=== PATIENT | male | born 1995 | race Caucasian/White ===

== ENCOUNTER 2017-06-12 09:49 | Emergency (ER) | payer SELFPAY ==
[~2017-06-12] VITALS: Ht 188 cm; Wt 145.1 kg
[2017-06-12] MEDS ORDERED: IPRATRPIUM/ALBUTEROL 0.5/2.5MG 3 ML NEBU. NEB ONE (11:00)
[2017-06-12] MEDS ORDERED: methylPREDNISolone SOD SUCC PF 125 MG/2 ML VIAL. IV ONE (11:00)
[2017-06-12] MEDS ORDERED: guaiFENesin/CODEINE 100mg/10mg 5 ML LIQUID PO ONE (11:00)
[2017-06-12] MEDS ORDERED: PRED20TA PO (11:55)
[2017-06-12] MEDS ORDERED: AZIT250T PO (11:55)
[2017-06-12] MEDS ORDERED: GUAI118L13 PO (11:55)
[2017-06-12] MEDS ORDERED: ALBU8.5H8 INH (11:55)
--- NOTE | 2017-06-12 12:02 | PHYS DOC ---
General Chief Complaint: COUGH Stated Complaint: COUGH Time Seen by MD: 09:51 Source: patient Exam Limitations: no limitations Problems: History of Present Illness Initial Comments Patient is a 22-year-old male who comes to the ED complaining of cough. 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 He says he' s had a history of seasonal allergies in the past however his allergy symptoms worsened with moving here to [place]. He says he has been coughing for the past week with nasal drainage (clear) cough is described as a dry cough. He's had no fever chills or body aches and has been using [id number]-[id number] medication without any relief. He's had a steady increase in wheezing dyspnea with exertion and today states he can only speak in short sentences due to shortness of breath. He has no focal chest pain complaints and is otherwise healthy. He is a smoker but states he's cut down to 1-2 daily since he's been ill. On arrival his oxygen saturation is 91-93% on room air. He is afebrile and not tachycardic. He asks that we try to keep costs down as he is self pay. We discussed chest x-ray and blood work which could be indicated in his case but he would like to defer those testing for now. Timing/Duration: 1 week, getting worse Severity: moderate Modifying Factors: worse with movement, improves with rest Associated Symptoms: cough, shortness of breath Allergies: Coded Allergies: Penicillins (Verified Allergy, Unknown, 06/12/17) Past Medical History Medical History: other (allergies) Surgical History: noncontributory Social History Smoker: cigarettes, less than 1 pack/day Alcohol: none Drugs: none Review of Systems Constitutional: denies chills, denies diaphoresis, denies fever Respiratory: see HPI, denies cough, denies orthopnea, shortness of breath, denies stridor, wheezing Cardiovascular: denies chest pain, denies palpitations, denies syncope Gastrointestinal: denies abdominal pain, denies nausea, denies vomiting Musculoskeletal: denies back pain, denies joint swelling, denies neck pain Psychiatric/Neurological: denies headache, denies numbness, denies paresthesia Immunological/Allergic: see HPI Physical Exam General Appearance: no apparent distress, obese Eyes: bilateral eye PERRL, bilateral eye EOMI, bilateral eye other ( conjunctiva red bilaterally) Ear, Nose, Throat: hearing grossly normal, other (clear nasal discharge and postnasal drip, turbinates inflamed airway is patent) Neck: full range of motion, supple Respiratory: other (decreased breath sounds bilaterally with wheezes, conversational dyspnea no respiratory distress) Cardiovascular: normal peripheral pulses, regular rate, rhythm Extremities: non-tender, normal inspection (no clubbing or cyanosis) Neurologic/Psychiatric: dials inspector II-XII nml as tested, no motor/sensory deficits, alert, normal mood/affect, oriented x 3 Skin: normal color, warm/dry Orders, Labs, Meds 1214: Patient received Solu-Medrol 125 mg IV, DuoNeb, and guaifenesin with codeine syrup. I rechecked him his breath sounds have improved dramatically and he can now speak in full sentences. He overall feels much better than he did but states he's a little dizzy from the codeine. He has a ride home his questions are answered and he expressed agreement and understanding with the treatment plan. He is advised to stop smoking. Departure Time of Disposition: 11:58 Disposition: 01 HOME, SELF-CARE Diagnosis: asthma exacerbation Condition: IMPROVED Patient Instructions: Asthma, Adult, [id number], Smoking Cessation, Tips For Success Additional Instructions: Off work two days, note given. OTC zyrtec in am, benadryl for pm symptoms. Stop smoking, it's not for you. Seek medical assistance if necessary. Avoid smoke, temperature extremes, and environmental allergens as able. Rx: prednisone, albuterol MDI, z-rama, guaifenesin w/codeine syrup You will need to follow up with a primary care physician. As discussed, ED staff will provide you information regarding the [facility]. [place] with them today to explore what assistance they may provide to you. Return to ED with new or changing symptoms. LENA NG DO Jun 12, 2017 12:02
[2017-06-12 12:03] VITALS: BP 134/81
== END 2017-06-12 12:14 | disposition home or self-care (01) ==
LOC: ER 09:49
DX: J45.901 Unspecified asthma with (acute) exacerbation (principal); F17.210 Nicotine dependence, cigarettes, uncomplicated; Z88.0 Allergy status to penicillin
CPT/HCPCS: 94640; 96374; 99284; J2930; J7620

== ENCOUNTER 2018-11-17 10:07 | Inpatient (IN) | payer SELFPAY ==
[~2018-11-17] VITALS: Ht 188 cm; Wt 102.5 kg
[~2018-11-17 10:07] MED LIST: ALBU2.5V8 INH; AZIT250T PO; GUAI118L13 PO; PRED20TA PO
[2018-11-17] MEDS ORDERED: IV NORMAL SALINE 1,000ML 1,000 ML IV SCH (10:29)
[2018-11-17] MEDS ORDERED: IPRATRPIUM/ALBUTEROL 0.5/2.5MG 3 ML NEBU. NEB ONE (10:30)
[2018-11-17] MEDS ORDERED: methylPREDNISolone SOD SUCC PF 125 MG/2 ML VIAL. IV ONE (10:30)
--- NOTE | 2018-11-17 10:44 | PHYS DOC ---
Past History Past Medical History: No Pertinent History Past Surgical History: No Surgical History Alcohol Use: None Drug Use: None Adult General Chief Complaint Chief Complaint: SHORTNESS OF BREATH [facility] HPI Patient is a 23 year old male who presents with complaining of shortness of breath. Patient states he woke up yesterday morning with shortness of breath as a constant problem with productive cough and green sputum. Patient complaining of subjective fever, sore throat, nasal congestion and earache, myalgia and decrease of activity. Patient did not take any medication. Patient denies nausea and vomiting, diarrhea, urinary symptom, history asthma, smoking cigarettes or using illegal drugs, or sick contact. Patient states he had one episode of the same problem couple years ago that was treated in this emergency room as outpatient. Patient had O2 sat of 88% at arrival to ER. Review of Systems Review of Systems Constitutional: Reports fever and chills Eyes: Denies change in visual acuity, redness, or eye pain [] HENT: Reports nasal congestion and sore throat Respiratory: Reports cough and shortness of breath Cardiovascular: No additional information not addressed in HPI [] GI: Denies abdominal pain, nausea, vomiting, bloody stools or diarrhea [] : Denies dysuria or hematuria [] Musculoskeletal: Denies back pain or joint pain [] Integument: Denies rash or skin lesions [] Neurologic: Denies headache, focal weakness or sensory changes [] Endocrine: Denies polyuria or polydipsia [] All other systems were reviewed and found to be within normal limits, except as documented in this note. Current Medications Current Medications Current Medications Medications (Trade) Dose Ordered Sig/[facility] Start Time Stop Time Status Last Admin Dose Admin Albuterol/ Ipratropium (Duoneb) 3 ml 1X ONCE 11/17/18 10:30 11/17/18 10:31 UNV Methylprednisolone Sodium Succinate (SOLU-Medrol 125MG VIAL) 125 mg 1X ONCE 11/17/18 10:30 11/17/18 10:31 UNV Sodium Chloride 1,000 ml @ 1,000 mls/hr Q1H 11/17/18 10:29 11/17/18 11:28 UNV Allergies Allergies Allergies Coded Allergies Type Severity Reaction Last Updated Verified Penicillins Allergy Unknown 06/12/17 Yes Physical Exam Physical Exam Constitutional: Well developed, well nourished, moderate distress, non-toxic appearance, temperature of 101.6. [] HENT: Normocephalic, atraumatic, bilateral external ears normal, oropharynx dry , no oral exudates, nose normal. [] Eyes: PERRLA, EOMI, conjunctiva normal, no discharge. [] Neck: Normal range of motion, no tenderness, supple, no stridor. [] Cardiovascular: Tachycardia, no murmur [] Lungs & Thorax: Mild respiratory distress, intercostal retraction and hyperventilation, decrease of air movement bilaterally. Abdomen: Bowel sounds normal, soft, no tenderness, no masses, no pulsatile masses. [] Skin: Warm, dry, no erythema, no rash. [] Back: No tenderness, no CVA tenderness. [] Extremities: No tenderness, no cyanosis, no clubbing, ROM intact, no edema. [] Neurologic: Alert and oriented X 3, normal motor function, normal sensory function, no focal deficits noted. [] Psychologic: Affect normal, judgement normal, mood normal. [] EKG EKG EKG interpreted by me. EKG at 1031 showed sinus tachycardia at rate of 145, right schuster axis, no acute ST and T-wave abnormalities. Radiology/Procedures Radiology/[place] [address] IMAGING REPORT Signed PATIENT: GRACIELA HORVATH ACCOUNT: [id number] : 1995 LOCATION: ER AGE: 23 SEX: M EXAM STATUS: PRE ER ORD. PHYSICIAN: SLIME TROY MD REASON: shortness of breath PROCEDURE: CHEST PA & LATERAL CHEST PA LATERAL History: COUGH WITH FEVER, PT SHIELDED. No comparison. Heart size not enlarged. No pleural effusion or pneumothorax. No focal infiltrate. Skeletal structures grossly intact. IMPRESSION: No consolidating infiltrate. Electronically signed by: Min Gandhi MD (11/17/2018 11:40 AM) [facility] DICTATED AND SIGNED BY: MIN GANDHI MD DATE: 11/17/18 1140 CC: SLIME TROY MD; PCP,NO ~ Course & Med Decision Making Course & Med Decision Making Pertinent Labs and Imaging studies reviewed. (See chart for details) Evaluation of patient in ER showed 23-year-old male patient without medical problems presented with complaining of shortness of breath. Patient had O2 sat of 88% at room air with heart rate of 140s and fever of 103. Patient had positive influenza A. Patient treated with IV fluid and Tylenol and oxygen. He still has heart rate of 140s and O2 sat of 93-94% with oxygen. The BNP was mildly elevated. Plan to admit patient with diagnosis of respiratory distress. Dr Natarajan on-call hospitalist accepted the admission and agreed with plan of care. Dragon Disclaimer Dragon Disclaimer This electronic medical record was generated, in whole or in part, using a voice recognition dictation system. Departure Departure: Impression: Primary Impression: Influenza A Additional Impressions: Acute respiratory distress Sinus tachycardia SIRS (systemic inflammatory response syndrome) Hypoxia Elevated brain natriuretic peptide (BNP) level Disposition: ADMITTED INPATIENT (at 1122) Admitting Physician: Kanwal Natarajan Condition: GUARDED Referrals: PCP,NO (PCP) Critical Care Time Critical care time was 70 minutes exclusive of procedures. Problem Qualifiers SLIME TROY MD Nov 17, 2018 10:44
[2018-11-17] MEDS ORDERED: ACETAMINOPHEN 500 MG TABLET PO ONE (10:45)
[2018-11-17 10:52] LABS: BASO # 0.1 x10^3/uL (0.0-0.2); BASO % 0 % (0-3); EOS % 0 % (0-3); HEMATOCRIT 51.1 % (39.0-53.0); HEMOGLOBIN 17.7 g/dL (13.0-17.5); LYMPH # 0.4 x10^3/uL (1.0-4.8); LYMPH % 2 % (24-48); MEAN CORPUSCULAR HEMOGLOBIN 29 pg (25-35); MEAN CORPUSCULAR HGB CONC 35 g/dL (31-37); MEAN CORPUSCULAR VOLUME 84 fL (79-100); MONO # 0.8 x10^3/uL (0.0-1.1); MONO % 5 % (0-9); NEUT # 16.1 x10^3uL (1.8-7.7); NEUT % 92 % (31-73); PLATELET COUNT 237 x10^3/uL (140-400); RED BLOOD COUNT 6.11 x10^6/uL (4.30-5.70); RED CELL DISTRIBUTION WIDTH 13.8 % (11.5-14.5); WHITE BLOOD COUNT 17.5 x10^3/uL (4.0-11.0)
[2018-11-17 10:59] LABS: INFLUENZA A PATIENT POSITIVE (NEGATIVE); INFLUENZA B PATIENT NEGATIVE (NEGATIVE)
[2018-11-17 11:07] LABS: ALBUMIN 4.5 g/dL (3.4-5.0); ALBUMIN/GLOBULIN RATIO 1.1 (1.0-1.7); CALCIUM 9.2 mg/dL (8.5-10.1); CREATININE 1.3 mg/dL (0.7-1.3); GFR 68.4; POTASSIUM 3.5 mmol/L (3.5-5.1); TOTAL BILIRUBIN 1.3 mg/dL (0.2-1.0); TOTAL PROTEIN 8.7 g/dL (6.4-8.2)
[2018-11-17 11:10] LABS: BGAS PH 7.4 (7.35-7.46)
--- NOTE | 2018-11-17 11:25 | EKG ---
[address] [address] Test Date: 2018-11-17 Test Time: 10:31:05 Pat Name: GRACIELA HORVATH Department: Room: Gender: M Staff Nurse Midwife: : 1995 Requested By: SLIME TROY Order Number: [id number] Reading MD: Scott Calixto MD Measurements Intervals [place] Rate: 145 P: -106 [place]: 72 QRS: 103 QRSD: 84 T: 54 QT: 316 QTc: 494 Interpretive Statements PROBABLE SINUS TACHYCARDIA NON-SPECIFIC ST/T CHANGES Electronically Signed On 11-27-2018 22:01:42 CDT by Scott Calixto MD
[2018-11-17] MEDS ORDERED: BENZONATATE 100 MG CAPSULE. PO ONE (11:30)
[2018-11-17] MEDS: IV NORMAL SALINE 1,000ML 1,000 ML IV ONE ×2 (11:30→11:39)
[2018-11-17] MEDS ORDERED: OSELTAMIVIR 75 MG CAPSULE PO ONE (11:30)
[2018-11-17] MEDS ORDERED: IV NORMAL SALINE 1,000ML 1,000 ML IV ONE ×2 (11:30→13:15)
--- NOTE | 2018-11-17 11:43 | RAD ---
CHEST PA LATERAL History: COUGH WITH FEVER, PT SHIELDED. No comparison. Heart size not enlarged. No pleural effusion or pneumothorax. No focal infiltrate. Skeletal structures grossly intact. IMPRESSION: No consolidating infiltrate. Electronically signed by: Min Gandhi MD (11/17/2018 11:40 AM) [facility]
[2018-11-17 12:35] VITALS: BP 117/68
[2018-11-17 13:31] LABS: % BANDS 8 % (0-9); % LYMPHS 1 % (24-48); % MONOS 6 % (0-10); % SEGS 85 % (35-66); PLT ESTIMATE ADEQUATE (ADEQUATE)
--- NOTE | 2018-11-17 13:54 | HP ---
ADMIT DATE: 11/17/2018 HISTORY OF PRESENT ILLNESS: The patient is a 23-year-old male patient who came to the Emergency Room with a complaint of cough with greenish sputum and shortness of breath that has been going on since yesterday morning, complained of subjective fever, sore throat, nasal congestion, earache, myalgia and decreased activity. He is not taking any medication. Denied any medical problems before. On arrival to the Emergency Room, his oxygen saturation was only 88%. He claimed that he had a similar problem years ago, treated at the Emergency Room as an outpatient. He was extensively investigated in the Emergency Room and his lab work showed that he has marked leukocytosis with a white cell count of 17,500. His influenza A was positive. His blood gases showed that he is hypoxic and the patient was admitted with acute hypoxic respiratory failure, systemic inflammatory response syndrome, elevated beta-natriuretic peptide, although his lactic acid was only 1.1. He has received 2 liters of fluid. He continued to be on 4 liters of oxygen to maintain oxygen saturation throughout at 94%. He was started on Tamiflu and I will add obviously more fluid and IV antibiotics. As he is allergic to PENICILLIN, I will start him on IV Levaquin. PAST MEDICAL HISTORY: Unremarkable. PAST SURGICAL HISTORY: Unremarkable. ALLERGIES: He is allergic to PENICILLIN. MEDICATIONS: He is currently on no medication. FAMILY HISTORY: He has 2 brothers and 1 sister older and healthy. His father is alive at the age of 52 and has diabetes. Mother is alive at the age of 52 and is healthy. SOCIAL HISTORY: He is single, has no children. He does not smoke cigarettes or drink alcohol; however, he used marijuana about a week ago. He works at [employer]. REVIEW OF SYSTEMS: The patient denied any blurring of vision, cataract, glaucoma or macular degeneration. Denied any earache, tinnitus or sensorineural deafness. Denied any nosebleeds, stuffy nose or postnasal drip. Denied any sore throat, sore tongue, toothache, hoarseness of voice or difficulty swallowing. Denied any nausea, vomiting, diarrhea or constipation. Denied any hematemesis, melena or hematochezia. Denied any dysuria, frequency or hematuria. Denied any chest pain. Did complain of shortness of breath, cough with greenish sputum. Denied any dizziness, lightheadedness, or vertigo. PHYSICAL EXAMINATION: GENERAL: On arrival to the Emergency Room, he was clearly tachypneic, tachycardic, febrile. There is no pallor, jaundice, cyanosis, or thyromegaly. No jugular venous distension. No limb edema. VITAL SIGNS: His heart rate was 150, blood pressure was 117/68, temperature was 101.6, respiratory rate was 34 and oxygen saturation was 88% on room air. HEAD, EYES, EARS, NOSE AND THROAT: Showed normocephalic, atraumatic. NECK: Supple. HEART: Showed normal first and second heart sounds. No gallop or murmur. CHEST: Shows central trachea, equally reduced expansion, reduced air entry, vesicular sounds. I could not really appreciate any crepitation or rhonchi. ABDOMEN: Scaphoid, was slightly distended. Soft and nontender. No guarding or rigidity. No organomegaly. All hernial orifices intact. Bowel sounds normal. NEUROLOGIC: He looked well and was clearly in no apparent respiratory distress. No pallor, jaundice, cyanosis, or thyromegaly. No jugular venous distension. No lower limb edema. He is awake, alert, responding appropriately. Cranial nerves intact. EXTREMITIES: He moves extremities without difficulty, ambulates without assistance or assistive devices. LABORATORY DATA: On arrival to the Emergency Room showed a serum sodium 137, potassium 3.5, chloride 98, bicarbonate 23, anion gap of 16, BUN 14, creatinine 1.3, estimated GFR was 68 mL per minute. His glucose was 119, lactic acid was 1.1. Calcium was 9.2. Total bilirubin 1.3. AST, ALT, alkaline phosphatase were normal. CK was 234, beta-natriuretic peptide was slightly high at 321. Total protein was 8.7, albumin 4.5. His white cell count was 17,500, hemoglobin 17.7, hematocrit 51, MCV 84 and platelet count 237,000. His blood gases showed a pH of 7.40, pCO2 of 31, pO2 57, bicarbonate was 19 and oxygen saturation was 88% on room air. His influenza A was positive, influenza B was negative. His chest x-ray showed that the heart size is not enlarged. No pleural effusion or pneumothorax. No focal infiltrates. Bony structures are grossly intact. IMPRESSION AND PLAN: The patient was admitted with acute hypoxic respiratory failure, influenza A. My plan is to continue with Tamiflu 75 mg twice a day. Continue with IV fluid, IV antibiotic and steroids. We will follow him closely and decide the further management accordingly. MARCELLE NASH MD DR: DINORAH/roshni JOB#: [id number] / [id number]
[2018-11-17] MEDS: IV NORMAL SALINE 1,000ML 1,000 ML IV SCH ×2 (13:59→22:38)
[2018-11-17] MEDS: methylPREDNISolone SOD SUCC PF 40 MG/ML VIAL. IV SCH ×2 (14:00→21:45)
[2018-11-17 14:51] VITALS: BP 124/79
[2018-11-17 18:29] LABS: BARBITURATES NEG (NEG); BENZODIAZEPINES NEG (NEG); CANNABINOIDS POS (NEG); COCAINE NEG (NEG); METHADONE NEG (NEG); OPIATES NEG (NEG); PHENCYCLIDINE NEG (NEG)
[2018-11-17 18:32] LABS: AMPHETAMINE/METHAMPHETAMINE NEG (NEG)
[2018-11-17 18:37] LABS: BACTERIA,URINE 0 /HPF (0-FEW); BILIRUBIN,URINE NEG (NEG); CLARITY,URINE CLEAR; COLOR,URINE YELLOW; GLUCOSE,URINE NEG (NEG); NITRITE,URINE NEG (NEG); RBC,URINE 0 /HPF (0-2); SQUAMOUS EPITHELIAL CELL,UR OCC /LPF; UROBILINOGEN,URINE 0.2 mg/dL (0.2 mg/dL); WBC,URINE 0 /HPF (0-4)
[2018-11-17 19:03] VITALS: BP 112/72
[2018-11-17] MEDS: LACTOBACILLUS RHAMNOSUS GG 1 CAPSULE. PO SCH (21:44)
[2018-11-17] MEDS: OSELTAMIVIR 75 MG CAPSULE PO SCH (21:45)
[2018-11-17 22:48] VITALS: BP 105/65
[2018-11-18 05:03] VITALS: BP 106/65
[2018-11-18] MEDS: methylPREDNISolone SOD SUCC PF 40 MG/ML VIAL. IV SCH ×2 (06:21→18:22)
[2018-11-18] MEDS: IV NORMAL SALINE 1,000ML 1,000 ML IV SCH ×2 (06:35→20:55)
[2018-11-18 06:52] LABS: BASO % 0 % (0-3); EOS % 0 % (0-3); HEMATOCRIT 45.1 % (39.0-53.0); HEMOGLOBIN 15.5 g/dL (13.0-17.5); LYMPH % 6 % (24-48); MEAN CORPUSCULAR HEMOGLOBIN 29 pg (25-35); MEAN CORPUSCULAR HGB CONC 34 g/dL (31-37); MEAN CORPUSCULAR VOLUME 85 fL (79-100); MONO # 0.4 x10^3/uL (0.0-1.1); MONO % 3 % (0-9); NEUT # 15.3 x10^3uL (1.8-7.7); NEUT % 91 % (31-73); PLATELET COUNT 188 x10^3/uL (140-400); RED BLOOD COUNT 5.32 x10^6/uL (4.30-5.70); RED CELL DISTRIBUTION WIDTH 13.9 % (11.5-14.5); WHITE BLOOD COUNT 16.7 x10^3/uL (4.0-11.0)
[2018-11-18 07:03] LABS: CALCIUM 8.8 mg/dL (8.5-10.1); GFR 92.6; POTASSIUM 4.4 mmol/L (3.5-5.1)
[2018-11-18] MEDS: LACTOBACILLUS RHAMNOSUS GG 1 CAPSULE. PO SCH ×2 (08:50→20:53)
[2018-11-18] MEDS: OSELTAMIVIR 75 MG CAPSULE PO SCH ×2 (08:50→20:53)
[2018-11-18 11:06] VITALS: BP 103/70
[2018-11-18 15:56] VITALS: BP 106/68
[2018-11-18 18:33] VITALS: BP 117/72
--- NOTE | 2018-11-18 20:39 | PN ---
DATE: 11/18/2018 SUBJECTIVE: The patient is resting, slightly propped up in bed, in no apparent distress. On questioning him, he said that he is feeling much better. His heart rate has slowed down. It is now 88 compared to yesterday with a heart rate of 144. His oxygen saturation still between 88 and 94 on room air, so we continued on 3 liters of oxygen by nasal cannula for now. H PHYSICAL EXAMINATION: GENERAL: When I examined him, he looked well and was clearly in no apparent respiratory distress. No pallor, jaundice, cyanosis or thyromegaly. No jugular venous distension. No limb edema. VITAL SIGNS: His heart rate was 88, blood pressure was 103/70, temperature was 97.5, respiratory rate 20, and oxygen saturation was 93% on 3 liters of oxygen by nasal cannula. HEAD, EYES, EARS, NOSE AND THROAT: Showed normocephalic, atraumatic. NECK: Supple. HEART: Showed normal first and second heart sounds. No gallop, rub or murmur. CHEST: Shows central trachea, equal bilateral expansion, air entry, vesicular sounds with no crepitation or rhonchi. ABDOMEN: Distended, soft, nontender. No guarding or rigidity. No organomegaly. All hernial orifices intact. Bowel sounds normal. NEUROLOGIC: He was awake, alert, responding appropriately. All cranial nerves intact. He moves extremities without difficulty, ambulates without assistance or assistive devices. His intake and output are incompletely recorded. LABORATORY DATA: His lab work this morning showed his white cell count is slightly down to 16,700, hemoglobin 15.5, hematocrit 45, MCV 85 and platelet count 288,000. Serum sodium was 141, potassium 4.4, chloride 105, bicarbonate 25, anion gap of 11, BUN 12, creatinine 1, estimated GFR was 92 mL per minute, his glucose 142, calcium was 8.8. His urinalysis is unremarkable. Toxic screen was positive for cannabinoids. His blood culture is still negative. His influenza A was positive, influenza B was negative; however, the blood culture is still negative. ASSESSMENT: 1. Acute hypoxic respiratory failure. 2. Influenza A. 3. Community-acquired pneumonia. PLAN: To continue with Tamiflu. I will cut down his steroids to 40 mg twice a day and hopefully discontinue them or switch him to something oral tomorrow. MARCELLE NASH MD DR: Sarah JOB#: [id number] / [id number]
[2018-11-18 22:44] VITALS: BP 99/67
[2018-11-19 05:03] VITALS: BP 107/69
[2018-11-19] MEDS: IV NORMAL SALINE 1,000ML 1,000 ML IV SCH (05:30)
[2018-11-19] MEDS: methylPREDNISolone SOD SUCC PF 40 MG/ML VIAL. IV SCH (05:54)
[2018-11-19] MEDS ORDERED: OSEL75CA PO (07:18)
[2018-11-19] MEDS ORDERED: PRED20TA PO (07:18)
[2018-11-19] MEDS ORDERED: LEVO750T31 PO (07:18)
[2018-11-19] MEDS: OSELTAMIVIR 75 MG CAPSULE PO SCH (07:51)
[2018-11-19] MEDS: LACTOBACILLUS RHAMNOSUS GG 1 CAPSULE. PO SCH (07:51)
--- NOTE | 2018-11-19 13:08 | DS ---
DATE OF DISCHARGE: 11/19/2018 HOSPITAL COURSE: The patient is a 23-year-old male patient who was admitted with a complaint of cough with greenish sputum and shortness of breath has been going on since the day before admission, also complained of subjective fever, sore throat, nasal congestion, earache, myalgia, and decreased activity. He denied any medical problem. He was hypoxic on arrival to the Emergency Room with an oxygen saturation 88%. He was found to have marked leukocytosis. His influenza A was positive. His blood gases showed that he was hypoxic. He has received 2 liters of fluid and initially continued on 4 liters of oxygen to maintain his oxygen saturation above 92%. He was started on Tamiflu, steroids inhalers as well as IV antibiotic as he is allergic to PENICILLIN. On arrival, he was extremely tachycardic. His heart rate was 150. He was febrile with temperature of 101.6. He did very well. PHYSICAL EXAMINATION: GENERAL: When I saw him this morning, he was resting slightly propped up in bed, in no apparent respiratory distress. No pallor, jaundice, cyanosis, or thyromegaly. No jugular venous distension. No limb edema. VITAL SIGNS: His heart rate was 60, blood pressure was 110/70, temperature was 98.4, respiratory rate was 16, and oxygen saturation was 93% on room air. HEAD, EYES, EARS, NOSE, AND THROAT: Showed normocephalic, atraumatic. NECK: Supple. HEART: Showed normal first and second sounds. No gallop, rub, or murmur. CHEST: Clear to auscultation. No crepitation or rhonchi. ABDOMEN: Distended, soft, nontender. No guarding or rigidity. No organomegaly. All hernial orifice intact. Bowel sounds normal. NEUROLOGIC: He was awake, alert, responding appropriately. All cranial nerves intact. EXTREMITIES: He moves extremities without difficulty. He ambulates without assistance or assistive devices. LABORATORY DATA: Showed white cell count of 16,700, hemoglobin 15.5, hematocrit 45, MCV 85, and a platelet count of . His chemistry showed a serum sodium 141, potassium 4.4, chloride 105, bicarbonate 25, anion gap of 11, BUN 12, creatinine 1, estimated GFR was 92 mL per minute, his glucose 142, calcium was 8.8. DISCHARGE MEDICATIONS: The patient will be discharged home to continue on Tamiflu 75 mg twice a day for 3 more days, levofloxacin 750 mg tapering course of steroids. FINAL DISCHARGE DIAGNOSES: 1. Influenza A. 2. Acute hypoxic respiratory failure. 3. Probably acute bronchitis. MARCELLE NASH MD DR: DINORAH/roshni JOB#: [id number] / [id number]
== END 2018-11-19 08:00 | disposition home or self-care (01) | DRG 193 ==
LOC: ER 10:07 → 1 SOUTH 12:16
PROVIDERS: ADMIT Internal Medicine; ATTEND Internal Medicine
DX: J10.00 Influenza due to other identified influenza virus with unspecified type of pneumonia (principal); J96.01 Acute respiratory failure with hypoxia; J20.9 Acute bronchitis, unspecified; Z83.3 Family history of diabetes mellitus; Z88.0 Allergy status to penicillin
CPT/HCPCS: 36415; 36600; 71046; 80048; 80053; 80307; 81001; 82550; 82803; 83605; 83880; 85007; 85025; 87040; 87070; 87205; 87449; 87804; 93005; 94640; 96361; 96374; J1956; J2920; J2930; J7620; 99291-25; J7030